=== PATIENT | female | born 1990 ===

== ENCOUNTER → 2018-01-31 | Outpatient (CLI) | payer OTHER ==
[~2018-01-31] MED LIST: ETHI1TAB16 PO; ETHI1TAB49 PO; FLUC150T40 PO
== END ==
LOC: LAB 14:26
PROVIDERS: ATTEND Obstetrics & Gynecology
DX: N89.8 Other specified noninflammatory disorders of vagina (principal)
CPT/HCPCS: 87210

== ENCOUNTER → 2018-07-21 | Outpatient (REF) ==
[2018-07-21 09:08] LABS: LDL CHOLESTEROL 95 mg/dl
== END ==
DX: Z02.9 Encounter for administrative examinations, unspecified (principal)